=== PATIENT | male | born 1975 | race African-American/Black ===

== ENCOUNTER 2019-05-07 21:10 | Emergency (ER) | payer SELFPAY ==
--- NOTE | 2019-05-07 21:29 | RAD ---
RIGHT FOOT: 05/07/19 Three views. HISTORY: Injury. The tarsals and metatarsals appear intact. There is fracture of the distal aspect of the proximal phalanx of the second toe without significant displacement. Fracture does involve the articular surface at the PIP joint. IMPRESSION: Fracture distal aspect of the proximal phalanx of the second toe which does involve the articular carlos a face. POS: OFF
[2019-05-07] MEDS ORDERED: Ibuprofen 800 MG TAB ONE (21:57)
== END 2019-05-07 22:03 | disposition home or self-care (01) ==
LOC: ERS 21:10
DX: S92.514A Nondisplaced fracture of proximal phalanx of right lesser toe(s), initial encounter for closed fracture (principal); I10 Essential (primary) hypertension; F17.290 Nicotine dependence, other tobacco product, uncomplicated; W22.8XXA Striking against or struck by other objects, initial encounter

== ENCOUNTER 2019-09-15 22:39 | Emergency (ER) | payer SELFPAY | END 2019-09-15 23:20 | disposition home or self-care (01) | LOC: ERS 22:39 | DX: S16.1XXA Strain of muscle, fascia and tendon at neck level, initial encounter (principal); I10 Essential (primary) hypertension; F17.290 Nicotine dependence, other tobacco product, uncomplicated; V89.2XXA Person injured in unspecified motor-vehicle accident, traffic, initial encounter | CPT/HCPCS: 99283 ==

== ENCOUNTER 2020-10-29 22:16 | Emergency (ER) | payer SELFPAY ==
[2020-10-30 04:14] LABS: SARS-CoV-2 PCR by NAA DETECTED (NotDetected)
== END 2020-10-30 00:31 | disposition home or self-care (01) ==
LOC: ERS 22:16
DX: U07.1 COVID-19 (principal); F17.210 Nicotine dependence, cigarettes, uncomplicated
CPT/HCPCS: 87635; 99283; U0003; U0005

== ENCOUNTER 2024-10-17 09:26 | Outpatient (CLI) | payer BC, OTHER | END 2024-10-17 09:27 | disposition home or self-care (01) | LOC: DTY/OP 09:26 | PROVIDERS: ATTEND Student in an Organized Health Care Education/Training Program | DX: E11.9 Type 2 diabetes mellitus without complications (principal) | CPT/HCPCS: 97802 ==